=== PATIENT | female | born 1975 | race Caucasian/White ===

== ENCOUNTER 2018-05-18 11:05 | Emergency (ER) | payer BC, SELFPAY ==
[2018-05-18] MEDS ORDERED: Diazepam 5 MG TAB ONE (11:42)
[2018-05-18] MEDS ORDERED: Ketorolac Tromethamine 60 MG/2 ML VIAL ONE (11:42)
[2018-05-18] MEDS ORDERED: HYDROcodone/Acetaminophen 7.5/325 mg Tablet ONE (13:01)
== END 2018-05-18 14:11 | disposition home or self-care (01) ==
LOC: ERS 11:05
DX: M54.42 Lumbago with sciatica, left side (principal)
CPT/HCPCS: 96372; J1885